=== PATIENT | female | born 2000 | race Caucasian/White ===

== ENCOUNTER → 2019-09-18 14:43 | Outpatient (CLI) | payer OTHER, SELFPAY ==
[2019-09-22 22:38] LABS: COVID19 Sendout Not Detected (Not Detected)
== END ==
PROVIDERS: Visit Provider Physician Assistant
DX: Z20.828 Contact with and (suspected) exposure to other viral communicable diseases (principal)
CPT/HCPCS: 87635

== ENCOUNTER 2020-01-23 12:52 | Emergency (ER) | payer OTHER, SELFPAY ==
[2020-01-23 13:02] VITALS: BP 130/59; PULSE 65; RESP 16; TEMP 36.7; O2SAT 99; BMI 26.6
[2020-01-23 13:26] LABS: Add Manual Diff / Slide Review NO; Basophils Absolute Auto 0 /uL (0-100); Basophils Percent Auto 0.2 % (0-2); Eosinophils Absolute Auto 100 /uL (0-450); Eosinophils Percent Auto 0.9 % (2-4); Hematocrit 37.9 % (36-46); Hemoglobin 13.5 g/dL (12.0-16.0); Lymphocytes Absolute Auto 2900 /uL (1100-4500); Lymphocytes Percent Auto 28.5 % (25-40); Mean Corpuscular HGB Conc 35.5 % (30-36); Mean Corpuscular Hemoglobin 30.4 PG (26-34); Mean Corpuscular Volume 85.6 fL (80-100); Monocytes Absolute Auto 600 /uL (0-900); Monocytes Percent Auto 5.8 % (3-14); Neutrophils Absolute Auto 6500 /uL (1500-7000); Neutrophils Percent Auto 64.6 % (50-75); Platelet Count 179 X10^3/uL (150-400); Red Blood Cell Count 4.43 X10^6/uL (4.0-5.2); Red Cell Distribution Width 13.5 % (11.6-14.8)
[2020-01-23 13:38] LABS: Alanine Aminotransferase 64 IU/L (<35); Albumin Globulin Ratio 1.3 (1.0-2.8); Alkaline Phosphatase 61 U/L (38-126); Aspartate Aminotransferase 35 IU/L (14-36); BUN Creatinine Ratio 24.3 (6-22); Bilirubin Total 0.4 mg/dL (0.2-1.3); Blood Urea Nitrogen 9 mg/dL (7-17); Calcium 9.8 mg/dL (8.4-10.2); Carbon Dioxide 23 mmol/L (22-32); Chloride 106 mmol/L (98-107); Estimated Glomerular Filt Rate > 60.0 mL/min (>60); Globulin 3.2 g/dL (1.7-4.1); Glucose 82 mg/dL (70-100); HEMOLYSIS < 15 (0-50); Potassium 3.9 mmol/L (3.4-5.1); Sodium 135 mmol/L (137-145); Total Protein 7.2 g/dL (6.3-8.2)
--- NOTE | 2020-01-23 14:35 | ED_ITS ---
HPI - GI Bleed General Chief complaint: GI Bleed Stated complaint: Blood In Stool, 16 Wks Preg Time Seen by Provider: 01/23/20 14:13 Source: patient Mode of arrival: Ambulatory Limitations: no limitations History of Present Illness HPI Narrative: 19-year-old female comes in with concern for blood in stool. She had a bowel movement and she noticed blood when she flushed the toilet and the stool sore old in the toilet. She states that she did not urinate at that time. She has not had any vaginal bleeding in the toilet/toilet paper. She has not had any blood on her underwear. She has had some mild abdominal cramping for the last week. No lightheadedness, no passing-out, no chest pain or shortness of breath. No new nausea or vomiting. She has had intermittently constipated and loose stools. She is unsure which she had today. She has had discharge throughout her . She is 16 weeks without any other complications. She is not on any anticoagulants. Related Data Allergies Allergy/AdvReac Type Severity Reaction Status Date / Time Penicillins Allergy Verified 01/23/20 13:07 Review of Systems Review of Systems ROS Unobtainable: All systems reviewed & are unremarkable except as noted in HPI and below Patient History Social History Smoking Status: Never smoker Smoking Status: Never smoker Substance Use Type: does not use Exam Narrative Exam Narrative: GENERAL: Alert and oriented x three, well-nourished, well- appearing female in mild distress HEENT: Head normocephalic, atraumatic, EOMI, pupils reactive, face symmetric, moist mucous membranes NECK: Supple, full range of motion CARDIOVASCULAR: Regular rate and rhythm without murmurs, rubs or gallops. RESPIRATORY: Breath sounds equal bilaterally, no wheezes rales or rhonchi. ABDOMEN: Soft, nontender. Normoactive bowel sounds all 4 quadrants. No guarding or rebound, rigidity, no mass, stool occult is negative. : No CVA tenderness. Gravid. Nontender. EXTREMITIES: Normal range of motion, no clubbing or edema. Neurovascularly intact NEUROLOGICAL: Cranial nerves II through XII grossly intact. Moving all extremities SKIN: Warm, dry, no petechiae, no rashes or lesions. Initial Vital Signs Initial Vital Signs: Vital Signs Temperature 98.0 F 01/23/20 13:02 Pulse Rate 65 01/23/20 13:02 Respiratory Rate 16 01/23/20 13:02 Blood Pressure 130/59 L 01/23/20 13:02 Pulse Oximetry 99 01/23/20 13:02 Course Orders Ordered: ED Orders 01/23/20 13:15 CMP [Comprehensive Metabolic Panel] Stat Complete Blood Count AUTO DIFF Stat Vital Signs Vital signs: Vital Signs - 8 hr 01/23/20 13:02 01/23/20 15:15 Temperature 98.0 F Pulse Rate 65 68 Respiratory Rate 16 16 Blood Pressure 130/59 L 117/68 Pulse Oximetry 99 100 MDM - GI Bleed Lab Data Attestation: I reviewed the patient's lab results. Result diagrams: 01/23/20 13:15 01/23/20 13:15 Labs: Lab Results 01/23/20 01/23/20 Range/Units 13:15 13:15 WBC 10.0 (4.5-11.0) X10^3/uL RBC 4.43 (4.0-5.2) X10^6/uL Hgb 13.5 (12.0-16.0) g/dL Hct 37.9 (36-46) % MCV 85.6 (80-100) fL MCH 30.4 (26-34) PG MCHC 35.5 (30-36) % RDW 13.5 (11.6-14.8) % Plt Count 179 (150-400) X10^3/uL Neut % (Auto) 64.6 (50-75) % Lymph % (Auto) 28.5 (25-40) % Gaines % (Auto) 5.8 (3-14) % Eos % (Auto) 0.9 L (2-4) % Baso % (Auto) 0.2 (0-2) % Neut # (Auto) 6500 (8431-1548) /uL Lymph # (Auto) 2900 (8060-0966) /uL Gaines # (Auto) 600 (0-900) /uL Eos # (Auto) 100 (0-450) /uL Baso # (Auto) 0 (0-100) /uL Sodium 135 L (137-145) mmol/L Potassium 3.9 (3.4-5.1) mmol/L Chloride 106 (98-107) mmol/L Carbon Dioxide 23 (22-32) mmol/L BUN 9 (7-17) mg/dL Creatinine 0.37 L (0.52-1.04) mg/dL Estimated GFR > 60.0 (>60) mL/min BUN/Creatinine Ratio 24.3 H (6-22) Glucose 82 (70-100) mg/dL Calcium 9.8 (8.4-10.2) mg/dL Total Bilirubin 0.4 (0.2-1.3) mg/dL AST 35 (14-36) IU/L ALT 64 H (<35) IU/L Alkaline Phosphatase 61 (38-126) U/L Total Protein 7.2 (6.3-8.2) g/dL Albumin 4.0 (3.5-5.0) g/dL Globulin 3.2 (1.7-4.1) g/dL Albumin/Globulin Ratio 1.3 (1.0-2.8) Point of Care Testing Test Results Positive Urine Dip Bedside Urine Glucose Negative Bedside Urine Bilirubin - Negative Bedside Urine Ketone - Negative Urine Specific [place] 1.015 Bedside Urine Occult Blood - Negative Bedside Urine pH 6.0 Bedside Urine Protein - Negative Bedside Urine Urobilinogen - Negative Bedside Urine Nitrite - Negative Bedside Urine Leukocytes - Negative Esterase Discharge Plan Departure Patient Disposition: Home Clinical Impression: Hematochezia, Activity Restrictions/Additional Instructions: Follow-up with your OBGYN at your regularly scheduled appointment. Your labs today do not show any change to your hemoglobin. Return to the ER for fevers, worsening abdominal pain, recurrent bloody or black stools, lightheadedness, passing out, difficulty with urination, vaginal bleeding or other new or concerning symptoms
[2020-01-23 15:15] VITALS: BP 117/68; PULSE 68; RESP 16; O2SAT 100
== END 2020-01-23 15:17 | disposition home or self-care (01) ==
PROVIDERS: Emergency Provider Emergency Medicine
DX: K92.1 Melena (principal); Z3A.16 16 weeks gestation of pregnancy
CPT/HCPCS: 36415; 80053; 81003; 81025; 85025; 99283